=== PATIENT | female | born 1990 | race Caucasian/White ===

== ENCOUNTER → 2018-09-17 18:23 | Outpatient (CLI) | payer OTHER, SELFPAY | PROVIDERS: Visit Provider Physician Assistant | DX: N39.0 Urinary tract infection, site not specified (principal) | CPT/HCPCS: 87086; 87088; 87186 ==

== ENCOUNTER 2021-06-07 21:52 | Emergency (ER) | payer SELFPAY ==
[2021-06-07 21:58] VITALS: BP 176/81; PULSE 80; RESP 16; TEMP 36.7; O2SAT 100; BMI 39.8
--- NOTE | 2021-06-07 22:03 | XR_ITS ---
PROCEDURE INFORMATION: Exam: XR Left Ankle Exam date and time: 06/07/2021 10:03 PM Age: 30 years old Clinical indication: Patient HX: Left lateral ankle pain; Additional info: Ankle vs [place]oulder TECHNIQUE: Imaging protocol: XR Left ankle. Views: 3 or more views. COMPARISON: No relevant prior studies available. FINDINGS: Bones/joints: There is no evidence of acute fracture. There is no evidence of joint malalignment or dislocation. Soft tissues: Soft tissue swelling is present. IMPRESSION: 1. Soft tissue swelling is present. 2. No evidence of acute fracture. 3. No evidence of acute dislocation.
--- NOTE | 2021-06-07 23:21 | HMH.EDLOEX ---
ED Disposition Clinical Impression: Ankle sprain and strain Disposition: Home, Self-Care Condition on Discharge: Good Instructions: DI for Ankle Sprain Additional Instructions: ice and see pcp for follow up Referrals: Jocelyn Lizama PA [Primary Care Provider] - - Critical Care Critical Care Time: No Attestation: On 06/07/21, the high probability of a clinically significant, sudden or life threatening deterioration of the following system(s) required my full and direct attention, intervention and personal management. The time I documented below is in addition to time spent performing reported procedures but includes the following listed in this critical care notation. Medical Decision Making - Medical Records Medical records reviewed: Yes: I reviewed the patient's medical records. - Fazal Inquiry Pt receiving controlled substance: No Vital Signs: 06/07/21 21:58 Temperature 98.1 F Temperature Source Oral Pulse Rate [Right Brachial] 80 Respiratory Rate 16 Blood Pressure [RIGHT AR] 176/81 H Blood Pressure Mean [RIGHT AR] 112 Blood Pressure Source [RIGHT AR] Automatic Cuff Blood Pressure Position [RIGHT AR] Sitting 02 Sat by Pulse Oximetry 100 Oxygen Delivery Method Room Air - Radiology Data #1 Image(s): Ankle Image Reviewed: Yes I reviewed the patient's radiology image, Yes I have reviewed radiologist's interpretation Preliminary Findings: No Fracture Seen Medical Decision Narrative: sts w/o fx seen Lower Extremity Injury HPI - General Chief Complaint: Extremity Injury, Lower Stated Complaint: AO [id number] injured L Ankle Time Seen by Provider: 06/07/21 23:21 Mode of Arrival: Family Vehicle Source of Information: Patient, Medical Record Limitations: No Limitations Description of Symptoms (Recalled from ER Triage Doc. by RN): PT INJURED LEFT ANKLE MONDAY WHILE ON VACATION BY SLAMMING IT AGAINST A ROCK UNINTENTIONALLY. STATES THE SWELLING CONTINUES TO INCR DESPITE ICING IT FOR THE LAST 4 DAYS AND WOULD LIKE IT XRAY'D - History of Present Illness HPI Narrative: acute lt ankle injury as hit against rock - swelling and tender MD complaint: ankle injury Onset (ago): day(s) Injury: Left: ankle Type of Injury: blunt Place: street/outdoors Severity: moderate Context: direct blow Associated symptoms: able to partially bear weight Other symptoms: none - Related Data Allergies Allergy/AdvReac Type Severity Reaction Status Date / Time No Known Allergies Allergy Unverified 09/17/18 15:[address] [facility] History - Hepatitis A Screen Drug use history?: No High risk sexual behaviors?: No History of sexually transmitted infection?: No Currently employed?: No Childcare worker?: No Do you have indoor plumbing?: Yes Do you have electricity?: Yes Attestation statement:: This patient has been screened for Hepatitis A risk factors. I have reviewed the patient's past medical history: Yes Medical History: Denies:: Diabetes Mellitus Type 1, Diabetes Mellitus Type 2 - Social History Smoking Status: Never smoker Alcohol Intake: never Family Hx:: No significant family history ROS Obtained: Yes All systems reviewed & no additional complaints - Constitutional Constitutional: Denies fever(s) - Eyes Eyes: Denies change in vision - ENT Ears, Nose, Mouth, and Throat: Denies sore throat - Cardiovascular Cardiovascular: Denies chest pain - Respiratory Respiratory: Denies cough - Gastrointestinal Gastrointestingal: Denies: abdominal pain - Genitourinary Female Genitourinary: Denies hematuria - Musculoskeletal Musculoskeletal: Reports as per HPI, Reports joint pain, Reports joint swelling, Reports limited range of motion - Integumentary/Breasts Skin/Breast: Denies rash - Neurologic Neurologic: Denies headache(s), Denies seizure-like activity Physical Exam - General General appearance: alert - Head Head exam: normocephalic - Eye Eye exam: Present: Jillian BACA
[2021-06-07 23:41] VITALS: BP 123/70; PULSE 72; RESP 18; TEMP 36.8; O2SAT 98
== END 2021-06-07 23:43 | disposition home or self-care (01) ==
PROVIDERS: Emergency Provider Emergency Medicine; PCP Physician Assistant
DX: S93.402A Sprain of unspecified ligament of left ankle, initial encounter (principal); W22.8XXA Striking against or struck by other objects, initial encounter; Y92.89 Other specified places as the place of occurrence of the external cause
CPT/HCPCS: 73610; 99282

== ENCOUNTER 2021-06-12 11:30 | Emergency (ER) | payer OTHER, SELFPAY ==
[2021-06-12 12:29] VITALS: BP 137/85; PULSE 102; RESP 22; TEMP 36.8; O2SAT 99; BMI 39.8
[2021-06-12 12:43] LABS: UTC Strep Screen (Rapid) Negative (Negative)
--- NOTE | 2021-06-12 12:58 | HMH.EDUTC ---
[facility] Disposition Clinical Impression: Close exposure to COVID-19 virus, Strep throat exposure Disposition: Home, Self-Care Condition on Discharge: Good Instructions: DI for COVID-19 (Suspected or Confirmed ), Preventing the Spread of Coronavirus Discharge Instructions, DI for Strep Throat Additional Instructions: covid swab was sent to lab, call later today for results. self isolate until test results are known to be negative Start antibiotics today be sure to take it as ordered with the full length of time although you should start feeling better in 24-48 hours. Change toothbrush and toothpaste 24-48 hours after starting antibiotics Tylenol or Motrin as needed for fever or pain Encourage fluids, water, Gatorade, Powerade, try cold fluids, popsicles, ice cream will make it feel better You are contagious for 24 hours. Avoid kissing anyone, no eating or drinking after anyone. You are contagious. Follow-up the ER for new or worsening symptoms or no noticeable improvement over the next 24-48 hours. Follow-up with PCP this week. Prescriptions: Azithromycin [Zithromax 250mg tab] 250 mg PO DIRECTED #6 tab Transmission Status: Pending to [facility] #[id number] Referrals: Jocelyn Lizama PA [Primary Care Provider] - Time of Disposition: 13:06 Medical Decision Making - Fazal Inquiry Pt receiving controlled substance: No Vital Signs: 06/12/21 12:29 Temperature 98.2 F Temperature Source Tympanic Pulse Rate [Apical] 102 H Respiratory Rate 22 Blood Pressure [Right Arm] 137/85 Blood Pressure Mean [Right Arm] 102 Blood Pressure Source [Right Arm] Automatic Cuff Blood Pressure Position [Right Arm] Supine 02 Sat by Pulse Oximetry 99 Oxygen Delivery Method Room Air - Lab Data Lab Results 06/12/21 12:26: Strep Scn Rapid Clinic Negative Orders (Tests/Meds): ORDERS Category Date Time Status Covid-19 Nasal PCR ([facility]) Routine Lab 06/12/21 12:20 Received Strep Screen Confirmation Stat Micro 06/12/21 12:26 Received [facility] HPI - General Chief complaint: Urgent Treatment [facility] Stated complaint: covid exposure,fever,cough,body aches Time Seen by Provider: 06/12/21 12:58 Mode of Arrival: Ambulatory Source of Information: Patient Limitations: No Limitations Description of Symptoms (Recalled from Triage Doc. by RN): covid exposure, cough, fever, body aches, nausea HEENT Symptoms (Recalled from RN notes): Yes Resp Symptoms (Recalled from RN notes): Yes Skin Symptoms (Recalled from RN notes): No MS Symptoms (Recalled from RN notes): No Functional Status (Recalled from RN notes): na - History of Present Illness Provider Complaint: 30 yr old female presnts for nasal congestion,sore throat, fever,tiredness and cough. pt states she has been exposed to covid and all three of her kids are poss for strep - Related Data Previous Rx's Medication Instructions Recorded Azithromycin [Zithromax 250mg 250 mg PO DIRECTED #6 tab 06/12/21 tab] Allergies Allergy/AdvReac Type Severity Reaction Status Date / Time No Known Allergies Allergy Unverified 09/17/18 15:29 - Worker's Comp Is this a Worker's Comp case?: No H History - Hepatitis A Screen Drug use history?: No High risk sexual behaviors?: No History of sexually transmitted infection?: No Currently employed?: No Childcare worker?: No Do you have indoor plumbing?: Yes Do you have electricity?: Yes Attestation statement:: This patient has been screened for Hepatitis A risk factors. I have reviewed the patient's past medical history: Yes Medical History: Denies:: Diabetes Mellitus Type 1, Diabetes Mellitus Type 2 - Social History Smoking Status: Never smoker Alcohol Intake: never Family Hx:: No significant family history ROS Obtained: Yes Systems reviewed as appropriate & no additional complaints - Constitutional Constitutional: Reports system reviewed and no additional complaints, except as docu, Reports feve
[2021-06-12 13:13] VITALS: BP 137/85; PULSE 102; RESP 22; TEMP 36.8
--- NOTE | 2021-06-12 16:33 | PC.NURSE ---
Patient contacted with positive covid results. Advised patient to self quarantine for 2 weeks.
== END 2021-06-12 13:14 | disposition home or self-care (01) ==
PROVIDERS: Emergency Provider Nurse Practitioner Family; PCP Physician Assistant
DX: U07.1 COVID-19 (principal)
CPT/HCPCS: 87880; 99202; G0463; U0003

== ENCOUNTER 2021-06-16 04:09 | Emergency (ER) | payer OTHER, SELFPAY ==
[2021-06-16 04:12] VITALS: BP 110/60; PULSE 112; RESP 18; TEMP 36.8; O2SAT 97; BMI 36.6
--- NOTE | 2021-06-16 04:42 | HMH.EDGENADL ---
ED Disposition Clinical Impression: COVID-19 Disposition: Home, Self-Care Condition on Discharge: Good Additional Instructions: Return to the emergency department for any new or worsening symptoms. Follow-up with your primary care doctor for recheck of your LFTs. Take Phenergan as needed for nausea and vomiting and discontinue Zofran. Continue Tylenol and ibuprofen as needed. You can increase your dose of ibuprofen to 600 mg every 6 hours but do not increase your dose of tylenol. Agressively hydrate. Prescriptions: Promethazine HCl [Phenergan 12.5mg tablet] 12.5 mg PO Q6H PRN #6 tab PRN Reason: Nausea And Vomiting Transmission Status: Pending to [facility] #[id number] Referrals: Jocelyn Lizama PA [Primary Care Provider] - - Critical Care Critical Care Time: No Attestation: On 06/16/21, the high probability of a clinically significant, sudden or life threatening deterioration of the following system(s) required my full and direct attention, intervention and personal management. The time I documented below is in addition to time spent performing reported procedures but includes the following listed in this critical care notation. Medical Decision Making - Fazal Inquiry Pt receiving controlled substance: No Vital Signs: 06/16/21 04:12 Temperature 98.2 F Temperature Source Oral Pulse Rate [Right] 112 H Respiratory Rate 18 Blood Pressure [Right Arm] 110/60 Blood Pressure Mean [Right Arm] 76 02 Sat by Pulse Oximetry 97 - Lab Data Lab Results 06/16/21 04:30: WBC 3.3 L, RBC 5.48 H, Hgb 13.8, Hct 40.9, MCV 74.7 L, MCH 25.2 L, MCHC 33.8, RDW 14.3, Plt Count 192, MPV 8.3, Neut % (Auto) 83.9 H, Lymph % (Auto) 13.4, Loup % (Auto) 2.3, Eos % (Auto) 0.0 L, Baso % (Auto) 0.4, Neut # (Auto) 2.7, Lymph # (Auto) 0.4 L, Loup # (Auto) 0.1, Eos # (Auto) 0.0, Baso # (Auto) 0.0 06/16/21 04:30: Sodium 139, Potassium 3.5, Chloride 100, Carbon Dioxide 28, Anion Gap 14.5, BUN 15, Creatinine 1.00, Estimated Creat Clear 119, Estimated GFR 66, Est GFR ( Amer) 79, Glucose 150 H, Calcium 8.8, Total Bilirubin 0.7, AST 66 H, ALT 81 H, Alkaline Phosphatase 102, Total Protein 8.0, Albumin 4.4, Globulin 3.6 H, Albumin/Globulin Ratio 1.2 Result diagrams: 06/16/21 04:30 06/16/21 04:30 Orders (Tests/Meds): ED MEDICATIONS Generic Name Dose Route Start Last Admin Trade Name Freq PRN Reason Stop Dose Admin Lactated Ringer's 1,000 mls @ 999 mls/hr 06/16/21 04:30 06/16/21 04:41 Lactated Ringer's 1000 Ml Bag IV 06/16/21 05:30 999 mls/hr .Q1H1M GISSEL Administration Discontinued Medications Generic Name Dose Route Start Last Admin Trade Name Freq PRN Reason Stop Dose Admin Dexamethasone Sodium Phosphate 10 mg 06/16/21 04:30 06/16/21 04:40 Dexamethasone 4mg/Ml 5ml Mdv IV 06/16/21 04:31 10 mg ONCE ONE Administration Ketorolac Tromethamine 30 mg 06/16/21 04:30 06/16/21 04:39 Ketorolac 30mg/Ml Vial IV 06/16/21 04:31 30 mg ONCE ONE Administration Prochlorperazine Edisylate 10 mg 06/16/21 04:32 06/16/21 04:39 Prochlorperazine 10mg/2ml Vial IV 06/16/21 04:33 10 mg ONCE ONE Administration Promethazine HCl 25 mg 06/16/21 04:30 06/16/21 04:39 Promethazine Hcl 25mg/Ml 1ml Vial IV 06/16/21 04:31 Not Given ONCE ONE Sodium Chloride 25 ml 06/16/21 04:30 06/16/21 04:39 Sodium Chloride 0.9% 25ml Bag IV 06/16/21 04:31 Not Given ONCE ONE Medical Decision Narrative: The patient is a 30-year-old female with no significant past medical history presents to the emergency department with 5 days of nausea, vomiting, decreased p.o. intake, headache, myalgias. She is known Covid positive. Differential diagnosis includes but 19, pneumonia, dehydration. Given this plan to obtain CBC, CMP. Lungs clear to auscultation and she has appropriate oxygen saturation on room air with normal work of breathing. Given this chest x-ray not deemed necessary. She was given Comp
[2021-06-16 04:51] LABS: Basophils % 0.4 % (0.1-2.0); Hematocrit 40.9 % (37.0-47.0); Hemoglobin 13.8 g/dL (12.2-16.2); Lymphocytes # 0.4 K/mm3 (0.7-4.5); Lymphocytes % 13.4 % (10-50); Mean Corpuscular HGB Conc 33.8 g/dL (31.8-35.4); Mean Corpuscular Hemoglobin 25.2 pg (27.0-31.2); Mean Corpuscular Volume 74.7 fl (81-99); Mean Platelet Volume 8.3 fl (7.4-10.4); Monocytes # 0.1 K/mm3 (0.1-1.0); Monocytes % 2.3 % (1.7-9.3); Neutrophils # 2.7 K/mm3 (1.8-7.8); Neutrophils % 83.9 % (37.0-80.0); Platelet Count 192 K/mm3 (142-424); Red Blood Count 5.48 M/mm3 (4.20-5.40); Red Cell Distribution Width 14.3 % (11.5-17.5); White Blood Count 3.3 K/mm3 (4.8-10.8)
[2021-06-16 04:52] LABS: Chloride 100 mmol/L (98-107); Potassium 3.5 mmoL/L (3.5-5.1); Sodium 139 mmol/L (136-145)
[2021-06-16 04:55] LABS: Alanine Aminotransferase 81 U/L (12-78); Albumin Level 4.4 g/dl (3.5-5.0); Albumin/Globulin Ratio 1.2 (1.1-1.8); Alkaline Phosphatase 102 U/L (38-126); Anion Gap 14.5 mEq/L (5-15); Aspartate Amino Transferase 66 U/L (14-36); Bilirubin,Total 0.7 mg/dl (0.2-1.3); Blood Urea Nitrogen 15 mg/dl (7-17); Carbon Dioxide 28 mmol/L (22.0-30.0); Creatinine Clearance Estimated 119 mL/min (50-200); Estimated Glomerular Filt Rate 66 ml/min (>60); GFR (African American) 79 ML/MIN (>60); Globulin 3.6 g/dL (1.3-3.2)
[2021-06-16 04:56] LABS: Calcium 8.8 mg/dl (8.4-10.2); Glucose 150 mg/dl (74-100)
[2021-06-16 05:36] VITALS: BP 111/76; PULSE 104; RESP 19; O2SAT 96
[2021-06-16 05:40] VITALS: BP 110/62; PULSE 101; RESP 18; TEMP 37.1; O2SAT 96
== END 2021-06-16 05:48 | disposition home or self-care (01) ==
PROVIDERS: Emergency Provider Emergency Medicine; PCP Physician Assistant
DX: U07.1 COVID-19 (principal)
CPT/HCPCS: 80053; 85025; 96365; 99283

== ENCOUNTER 2021-06-18 07:59 | Inpatient (IN) | payer OTHER, SELFPAY ==
[2021-06-18] VITALS (17 sets, daily range): BP systolic 97–120; BP diastolic 53–66; PULSE 85–131; RESP 18–47; TEMP 36.6–39.4; O2SAT 88–97; BMI 38.9; BMI 40.2
--- NOTE | 2021-06-18 08:09 | XR_ITS ---
PROCEDURE: XR CHEST PORTABLE CLINICAL HISTORY: covid Shortness of air COMPARISON: No exams were available for comparison FINDINGS: The cardiomediastinal silhouette and pulmonary vascularity are within normal limits. Multifocal areas of consolidation are present in both mid and lower lung zones consistent with bilateral pneumonia. Lung apices are clear. No acute bony findings. No obvious effusion. IMPRESSION: Bilateral multifocal pneumonia Dictated by: Cosmo King MD 06/18/2021 09:51 Cosmo King MD in [facility] 06/18/2021 09:51
--- NOTE | 2021-06-18 08:09 | HMH.EDGENADL ---
ED Disposition Clinical Impression: COVID, Acute respiratory failure with hypoxia Pneumonia Qualifiers: Pneumonia type: due to unspecified organism Laterality: bilateral Lung location: unspecified part of lung Qualified Code(s): J18.9 - Pneumonia, unspecified organism Disposition: Admitted As Inpatient Condition on Discharge: Fair Referrals: Jocelyn Lizama PA [Primary Care Provider] - Time of Disposition: 10:26 - Critical Care Critical Care Time: No Attestation: On , the high probability of a clinically significant, sudden or life threatening deterioration of the following system(s) required my full and direct attention, intervention and personal management. The time I documented below is in addition to time spent performing reported procedures but includes the following listed in this critical care notation. Medical Decision Making - Medical Records Medical records reviewed: Yes: I reviewed the patient's medical records. - Fazal Inquiry Pt receiving controlled substance: No Vital Signs: 06/18/21 08:01 06/18/21 08:29 06/18/21 08:30 Temperature 103 F H Temperature Source Oral Pulse Rate 131 H 128 H Pulse Rate [Right Radial] 124 H Respiratory Rate 20 47 H 41 H Blood Pressure Blood Pressure [Right Arm] 108/59 L Blood Pressure Mean Blood Pressure Mean [Right Arm] 75 Blood Pressure Source [Right Arm] Automatic Cuff Blood Pressure Position [Right Arm] Sitting 02 Sat by Pulse Oximetry 88 L 93 L 93 L Oxygen Delivery Method Room Air Nasal Cannula Oxygen Flow Rate (LPM) 2 06/18/21 08:33 06/18/21 08:45 06/18/21 09:00 Temperature Temperature Source Pulse Rate 127 H 128 H Pulse Rate [Right Radial] Respiratory Rate 37 H 25 H Blood Pressure 120/66 Blood Pressure [Right Arm] Blood Pressure Mean 81 Blood Pressure Mean [Right Arm] Blood Pressure Source [Right Arm] Blood Pressure Position [Right Arm] 02 Sat by Pulse Oximetry 93 L 94 L 95 Oxygen Delivery Method Nasal Cannula Oxygen Flow Rate (LPM) 20 06/18/21 09:18 06/18/21 09:35 06/18/21 09:45 Temperature Temperature Source Pulse Rate 124 H 112 H Pulse Rate [Right Radial] Respiratory Rate Blood Pressure Blood Pressure [Right Arm] Blood Pressure Mean Blood Pressure Mean [Right Arm] Blood Pressure Source [Right Arm] Blood Pressure Position [Right Arm] 02 Sat by Pulse Oximetry 90 L 96 96 Oxygen Delivery Method Oxygen Flow Rate (LPM) 06/18/21 09:49 06/18/21 09:59 06/18/21 10:00 Temperature 101.7 F H Temperature Source Oral Pulse Rate 114 H 114 H Pulse Rate [Right Radial] Respiratory Rate 27 H 26 H Blood Pressure 105/63 L 110/61 Blood Pressure [Right Arm] Blood Pressure Mean 74 71 Blood Pressure Mean [Right Arm] Blood Pressure Source [Right Arm] Blood Pressure Position [Right Arm] 02 Sat by Pulse Oximetry 96 96 Oxygen Delivery Method Nasal Cannula Oxygen Flow Rate (LPM) 2 06/18/21 10:05 Temperature Temperature Source Pulse Rate Pulse Rate [Right Radial] Respiratory Rate Blood Pressure Blood Pressure [Right Arm] Blood Pressure Mean Blood Pressure Mean [Right Arm] Blood Pressure Source [Right Arm] Blood Pressure Position [Right Arm] 02 Sat by Pulse Oximetry 95 Oxygen Delivery Method Nasal Cannula Oxygen Flow Rate (LPM) 2 - Lab Data Lab results reviewed: Yes: I reviewed the patient's lab results. Lab Results 06/18/21 08:20: Sodium 138, Potassium 3.5, Chloride 103, Carbon Dioxide 25, Anion Gap 13.5, BUN 17, Creatinine 0.80, Estimated Creat Clear 163, Estimated GFR 85, Est GFR ( Amer) 103 D, Glucose 109 H, Calcium 8.1 L, Total Bilirubin 0.5, AST 36 D, ALT 36 D, Alkaline Phosphatase 70, Lactate Dehydrogenase 329, Total Protein 6.9, Albumin 3.7, Globulin 3.2, Albumin/Globulin Ratio 1.2 06/18/21 08:20: Serum HCG, Qual Negative 06/18/21 08:20: D-Dimer 0.65 H 06/18/21 08:50: WBC 2.7 L, RBC 4.6
--- NOTE | 2021-06-18 08:10 | ECG_ITS ---
APPROVED REPORT Exam: Resting ECG HR:124 bpm ECG Measurements Heart Rate 124 AXES MD 120 P 17 QRSd 84 QRS 28 QT 408 T 21 QTc 586 Conclusion Sinus tachycardia Nonspecific T wave abnormality Abnormal ECG Electronically signed by : Dano Nguyen, 06/20/2021 21:08:03
--- NOTE | 2021-06-18 08:18 | PC.NURSE ---
rad at BS for portable xray
[2021-06-18 08:59] LABS: Alanine Aminotransferase 36 U/L (12-78); Albumin Level 3.7 g/dl (3.5-5.0); Albumin/Globulin Ratio 1.2 (1.1-1.8); Alkaline Phosphatase 70 U/L (38-126); Anion Gap 13.5 mEq/L (5-15); Aspartate Amino Transferase 36 U/L (14-36); Bilirubin,Total 0.5 mg/dl (0.2-1.3); Blood Urea Nitrogen 17 mg/dl (7-17); Calcium 8.1 mg/dl (8.4-10.2); Carbon Dioxide 25 mmol/L (22.0-30.0); Chloride 103 mmol/L (98-107); Creatinine Clearance Estimated 163 mL/min (50-200); Estimated Glomerular Filt Rate 85 ml/min (>60); GFR (African American) 103 ML/MIN (>60); Globulin 3.2 g/dL (1.3-3.2); Glucose 109 mg/dl (74-100); Lactate Dehydrogenase 329 U/L (313-618); Potassium 3.5 mmoL/L (3.5-5.1); Sodium 138 mmol/L (136-145); Total Protein,Serum 6.9 g/dl (6.3-8.2)
[2021-06-18 09:01] LABS: Basophils % 0.4 % (0.1-2.0); Eosinophils % 0.5 % (0.1-12.0); Hematocrit 34.3 % (37.0-47.0); Hemoglobin 11.7 g/dL (12.2-16.2); Lymphocytes # 0.4 K/mm3 (0.7-4.5); Lymphocytes % 14.8 % (10-50); Mean Corpuscular Hemoglobin 25.2 pg (27.0-31.2); Mean Platelet Volume 8.2 fl (7.4-10.4); Monocytes % 1.2 % (1.7-9.3); Neutrophils # 2.2 K/mm3 (1.8-7.8); Platelet Count 191 K/mm3 (142-424); Red Blood Count 4.64 M/mm3 (4.20-5.40); Red Cell Distribution Width 14.6 % (11.5-17.5); White Blood Count 2.7 K/mm3 (4.8-10.8)
[2021-06-18 09:05] LABS: D-Dimer 0.65 ug/mL (0.0-0.5)
--- NOTE | 2021-06-18 09:11 | CT_ITS ---
PROCEDURE: CT ANGIO CHEST PE PROTOCOL CLINCIAL INDICATION: COVID, SOB The shortness of air and fever COMPARISON: CR XR CHEST PORTABLE from 06/18/2021 TECHNIQUE: IV Contrast: 70ML Isovue 370 Axial images obtained with sagittal and coronal reformats. All CT scans at the facility use one or more dose reduction, viz: automated exposure control, ma/kV adjustment per patient size (including targeted exams where dose is matched to indication, i.e. head), or iterative reconstruction technique. FINDINGS: HEART AND MEDIASTINAL STRUCTURES: No evidence of aortic aneurysm or dissection. No evidence pulmonary embolus. There are mildly prominent mediastinal lymph nodes in the right paratracheal region anteriorly measuring up to 1.8 cm. LUNGS AND PLEURAL SPACES: Multi segmental areas of ground-glass attenuation and areas of consolidation are present in both upper and lower lobes consistent with Covid19 pneumonia. There is sparing of the apices on both sides. There is trace right effusion. BONY STRUCTURES: No acute bony abnormalities apparent. UPPER ABDOMEN: Fatty liver ADDITIONAL FINDINGS: No other significant abnormalities. IMPRESSION: 1. Multifocal bilateral areas of ground-glass attenuation and consolidation consistent with Covid19 pneumonia with trace right effusion 2. No evidence of pulmonary embolus. Dictated by: Cosmo King MD 06/18/2021 09:43 Cosmo King MD in [facility] 06/18/2021 09:43
[2021-06-18 09:18] LABS: HCG Qualitative, Serum Negative (Negative)
--- NOTE | 2021-06-18 09:22 | PC.NURSE ---
Pt to CT scanner via wheelchair at this time.
--- NOTE | 2021-06-18 09:29 | PC.NURSE ---
pt with rad
--- NOTE | 2021-06-18 11:18 | PC.NURSE ---
Report given to TEENA Arceo.
--- NOTE | 2021-06-18 18:04 | P.CONPHA_ITS ---
[facility] Pharmacy VTE Monitoring - Patient Demographics Admission date: 06/18/21 Report Date: 06/18/21 Time: 18:04 Allergies/Adverse Reactions: Patient Allergies No Known Allergies Allergy (Verified 06/18/21 09:28) Height: 1.57 m Weight: 99.79 kg Patient Problems: Current Active Problems COVID (Acute) Pneumonia (Acute) Acute respiratory failure with hypoxia (Acute) - VTE Risk Labs: VTE Related Lab Results Hgb 11.7 g/dL (12.2-16.2) L 06/18/21 08:50 Hct 34.3 % (37.0-47.0) L 06/18/21 08:50 Plt Count 191 K/mm3 (142-424) 06/18/21 08:50 BUN 17 mg/dl (7-17) 06/18/21 08:20 Creatinine 0.80 mg/dl (0.52-1.04) 06/18/21 08:20 Estimated Creat Clear 163 mL/min (50-200) 06/18/21 08:20 Was VTE Risk Assessment Performed: Yes VTE Score: 0 VTE Risk Level: Very Low Risk Clinical Trial Participant: No - Prophylaxis VTE Prophylaxis Ordered?: Yes Types of VTE Prophylaxis: TEDS Knee High Pharmacologic Type: Enoxaparin - VTE Diagnosis Confirmed Treatment or plan recommended: Continue Current Treatment
--- NOTE | 2021-06-18 18:07 | PC.NURSE ---
pt has remained in bed since admission. she has had 2 loose bm this shift. afebrile. sats in the low 90's on 2lpm. denies any distress. lungs are diminished, bowel sounds active. nad noted. will monitor.
[2021-06-19] VITALS: BP 105/61; PULSE 96; RESP 19; TEMP 37; O2SAT 91
[2021-06-19 04:00] VITALS: BP 111/71; PULSE 86; RESP 19; O2SAT 95
[2021-06-19 06:14] VITALS: BMI 40.5
[2021-06-19 06:35] LABS: Basophils % 0.2 % (0.1-2.0); Eosinophils % 0.4 % (0.1-12.0); Hematocrit 33.5 % (37.0-47.0); Hemoglobin 11.2 g/dL (12.2-16.2); Lymphocytes # 0.9 K/mm3 (0.7-4.5); Lymphocytes % 38.8 % (10-50); Mean Corpuscular HGB Conc 33.4 g/dL (31.8-35.4); Mean Corpuscular Hemoglobin 25.1 pg (27.0-31.2); Mean Corpuscular Volume 75.1 fl (81-99); Mean Platelet Volume 8.6 fl (7.4-10.4); Monocytes # 0.1 K/mm3 (0.1-1.0); Monocytes % 3.7 % (1.7-9.3); Neutrophils # 1.3 K/mm3 (1.8-7.8); Neutrophils % 56.9 % (37.0-80.0); Platelet Count 121 K/mm3 (142-424); Red Blood Count 4.46 M/mm3 (4.20-5.40); Red Cell Distribution Width 14.8 % (11.5-17.5); White Blood Count 2.3 K/mm3 (4.8-10.8)
--- NOTE | 2021-06-19 06:49 | PC.NURSE ---
Patient is A&Ox4. She had a temperature of 102.7 at the beginning of the shift, patient medicated per JAN. She had complaints of nausea and was treated per JAN. Lung sounds clear, but diminished throughout. Patient slept prone most of the night and maintain O2 saturation of 94-96% on 2LNC. Suggested patient sleep prone due to O2 saturation dropping to 87% while sleeping. Will continue to monitor. Vital signs stable, call light within reach.
[2021-06-19 06:54] LABS: Blood Urea Nitrogen 12 mg/dl (7-17); Calcium 7.6 mg/dl (8.4-10.2); Carbon Dioxide 24 mmol/L (22.0-30.0); Chloride 107 mmol/L (98-107); Creatinine Clearance Estimated 104 mL/min (50-200); Estimated Glomerular Filt Rate 118 ml/min (>60); GFR (African American) 143 ML/MIN (>60); Glucose 79 mg/dl (74-100); Sodium 139 mmol/L (136-145)
[2021-06-19 08:00] VITALS: BP 143/67; PULSE 95; RESP 17; TEMP 36.3; O2SAT 93
[2021-06-19 12:00] VITALS: BP 116/69; PULSE 106; RESP 19; TEMP 37; O2SAT 93
--- NOTE | 2021-06-19 14:08 | HMH.HP ---
*Admission Date: 06/18/21 *Chief complaint: covid pneumonia *History of present illness: 30yo F presents the emergency department second shortness of breath. Patient test positive for Covid on Monday. Complains of fever. Decreased appetite. Reports general malaise. Patient has no known health conditions. She does not smoke. Takes no medications. 30yo F evaluated for shortness of breath with known Covid. Patient is 88% on room air on arrival. Placed on 2 L nasal cannula with appropriate improvement in O2 saturation. Routine Covid work-up initiated. D-dimer elevated at 0.65. Sent for CT PE study, negative for PE. Multifocal pneumonia on CT scan therefore started on Rocephin and azithromycin. Fever treated with Tylenol and Motrin on arrival. Case discussed with Dr. Aguirre who agrees to admit the patient at this time for further treatment. CTA chest as follows : PROCEDURE: CT ANGIO CHEST PE PROTOCOL CLINCIAL INDICATION: COVID, SOB The shortness of air and fever COMPARISON: CR XR CHEST PORTABLE from 06/18/2021 TECHNIQUE: IV Contrast: 70ML Isovue 370 Axial images obtained with sagittal and coronal reformats. All CT scans at the facility use one or more dose reduction, viz: automated exposure control, ma/kV adjustment per patient size (including targeted exams where dose is matched to indication, i.e. head), or iterative reconstruction technique. FINDINGS: HEART AND MEDIASTINAL STRUCTURES: No evidence of aortic aneurysm or dissection. No evidence pulmonary embolus. There are mildly prominent mediastinal lymph nodes in the right paratracheal region anteriorly measuring up to 1.8 cm. LUNGS AND PLEURAL SPACES: Multi segmental areas of ground-glass attenuation and areas of consolidation are present in both upper and lower lobes consistent with Covid19 pneumonia. There is sparing of the apices on both sides. There is trace right effusion. BONY STRUCTURES: No acute bony abnormalities apparent. UPPER ABDOMEN: Fatty liver ADDITIONAL FINDINGS: No other significant abnormalities. IMPRESSION: 1. Multifocal bilateral areas of ground-glass attenuation and consolidation consistent with Covid19 pneumonia with trace right effusion 2. No evidence of pulmonary embolus. [facility] History Medical History: Denies:: Asthma, Congestive Heart Failure, Chronic Obstructive Pulmonary Disease (COPD), Diabetes Mellitus Type 1, Diabetes Mellitus Type 2, Hypertension *Have you ever received a pneumonia vaccine?: No *Have you received a flu vaccine this season?: No - *Social History Last grade of school completed: High school graduate Smoking Status: Never smoker Alcohol Intake: never *Occupational Status:: employed Household Members: spouse, children *Travel in the last 8 weeks: None Family Hx:: No significant family history Review of Systems - Constitutional Reports lack of energy, Reports malaise - Eyes Denies change in vision - ENT Denies difficulty swallowing - *Cardiovascular Reports chest pain, Reports shortness of breath, Reports shortness of breath with activity - *Respiratory Reports chest congestion, Reports cough - *Gastrointestinal Reports abdominal pain, Reports cramping, Reports vomiting - *Genitourinary Denies painful urination - *Musculoskeletal Reports muscle weakness, Reports body aches - Integumentary/Breasts Denies yellowing of the skin - *Neurologic Denies seizure-like activity, Denies localized weakness - Psychiatric Denies behavioral changes - Endocrine Denies rapid, pounding, or irregular heartbeat - Hematologic/Lymphatic Denies easy bleeding, Denies easy bruising - Allergic/Immunologic Denies hives Meds Allergies Allergy/AdvReac Type Severity Reaction Status Date / Time No Known Allergies Allergy Verified 06/18/21 09:28 Exam Vital signs and Labs for Last 24 Hours: Temp Pulse Resp BP Pulse Ox 98.6 F 106 H 19 116/69 93 L
[2021-06-19 16:00] VITALS: BP 118/56; PULSE 96; RESP 17; TEMP 37.4; O2SAT 90
[2021-06-19 20:00] VITALS: BP 90/74; PULSE 101; RESP 22; TEMP 37.4; O2SAT 91
[2021-06-20] VITALS: BP 142/77; PULSE 70; RESP 20; TEMP 37.5; O2SAT 91
--- NOTE | 2021-06-20 03:22 | PC.NURSE ---
Patient is alert & oriented x4. She has rested well this shift. No complaints where made voice this shift. O2 saturation has been maintained on 2L NC. Patient has slept prone and has tolerated that well. Lung sounds are clear. Vital signs clear, will continue to monitor, call light within reach.
--- NOTE | 2021-06-20 03:49 | PC.NURSE ---
Patient had a coughing spell and wanted to sit up for a bit. O2 saturation fell and I suggested she lay prone again. At that time patient states I feel like I can't breath laying like this right now . Patient is currently sitting in high [place] with a O2 of 89% with respirations at 21. Will continue to monitor.
[2021-06-20 04:00] VITALS: BP 120/79; PULSE 86; RESP 20; TEMP 37.2; O2SAT 92
[2021-06-20 05:00] VITALS: BMI 40.7
--- NOTE | 2021-06-20 06:00 | XR_ITS ---
PROCEDURE INFORMATION: Exam: XR Chest Exam date and time: 06/20/2021 6:00 AM Age: 30 years old Clinical indication: Cough; Patient HX: Pneumonia. Covid positive; Additional info: [place] TECHNIQUE: Imaging protocol: XR of the chest. Views: 1 view. COMPARISON: CR XR CHEST PORTABLE 06/18/2021 8:20 AM FINDINGS: Lungs: Patchy bilateral opacities may represent multifocal pneumonia including COVID-19. Pleural spaces: Unremarkable. No pleural effusion. No pneumothorax. Heart/Mediastinum: Unremarkable. No cardiomegaly. Bones/joints: Unremarkable. IMPRESSION: Patchy bilateral opacities may represent multifocal pneumonia including COVID-19.
[2021-06-20 06:11] LABS: Basophils % 0.1 % (0.1-2.0); Eosinophils % 0.1 % (0.1-12.0); Hematocrit 29.5 % (37.0-47.0); Lymphocytes # 0.8 K/mm3 (0.7-4.5); Lymphocytes % 24.4 % (10-50); Mean Corpuscular HGB Conc 33.1 g/dL (31.8-35.4); Mean Corpuscular Hemoglobin 24.9 pg (27.0-31.2); Mean Corpuscular Volume 75.3 fl (81-99); Mean Platelet Volume 7.7 fl (7.4-10.4); Monocytes # 0.1 K/mm3 (0.1-1.0); Neutrophils # 2.2 K/mm3 (1.8-7.8); Neutrophils % 71.4 % (37.0-80.0); Platelet Count 218 K/mm3 (142-424); Red Blood Count 3.91 M/mm3 (4.20-5.40); Red Cell Distribution Width 14.7 % (11.5-17.5)
[2021-06-20 06:17] LABS: Hemoglobin 9.7 g/dL (12.2-16.2)
[2021-06-20 07:08] LABS: Chloride 101 mmol/L (98-107); Sodium 139 mmol/L (136-145)
[2021-06-20 07:10] LABS: Blood Urea Nitrogen 9 mg/dl (7-17); Creatinine Clearance Estimated 89 mL/min (50-200); Estimated Glomerular Filt Rate 99 ml/min (>60); GFR (African American) 120 ML/MIN (>60)
[2021-06-20 07:11] LABS: Alanine Aminotransferase 20 U/L (12-78); Albumin Level 2.8 g/dl (3.5-5.0); Alkaline Phosphatase 51 U/L (38-126); Aspartate Amino Transferase 34 U/L (14-36); Bilirubin,Total 0.2 mg/dl (0.2-1.3); Calcium 7.6 mg/dl (8.4-10.2); Carbon Dioxide 28 mmol/L (22.0-30.0); Globulin 2.9 g/dL (1.3-3.2); Glucose 76 mg/dl (74-100); Total Protein,Serum 5.7 g/dl (6.3-8.2)
[2021-06-20 08:00] VITALS: BP 121/71; PULSE 95; RESP 20; TEMP 37.1; O2SAT 91
[2021-06-20 11:12] VITALS: BP 134/72; PULSE 76; RESP 19; TEMP 36.7; O2SAT 93
[2021-06-20 15:31] VITALS: BP 132/80; PULSE 60; RESP 18; TEMP 36.8; O2SAT 95
--- NOTE | 2021-06-20 16:32 | P.PN_ITS ---
Internal Medicine - PN: Subj *Date: 06/20/21 *Time: 16:32 Interval history: ICU staff notes no significant decline or worrisome changes. She is saturating at 2 L/min. We are initiating remdesivir, and initiating runs of IV potassium. I spoke with the clinical pharmacist earlier today. Cough is somewhat abated, nausea is manageable. Does have a mild bifrontal headache. Exam Vital signs and Labs for Last 24 Hours: Temp Pulse Resp BP Pulse Ox 98.3 F 60 18 132/80 95 06/20/21 15:31 06/20/21 15:31 06/20/21 15:31 06/20/21 15:31 06/20/21 15:31 Laboratory Results - last 24 hr 06/20/21 05:33: WBC 3.0 L D, RBC 3.91 L, Hgb 9.7 L D, Hct 29.5 L, MCV 75.3 L, MCH 24.9 L, MCHC 33.1, RDW 14.7, Plt Count 218 D, MPV 7.7, Neut % (Auto) 71.4, Lymph % (Auto) 24.4, [place] % (Auto) 4.0, Eos % (Auto) 0.1, Baso % (Auto) 0.1, Neut # (Auto) 2.2, Lymph # (Auto) 0.8, [place] # (Auto) 0.1, Eos # (Auto) 0.0, Baso # (Auto) 0.0 06/20/21 05:33: Sodium 139, Potassium 3.0 L, Chloride 101, Carbon Dioxide 28, Anion Gap 13.0, BUN 9, Creatinine 0.70, Estimated Creat Clear 89, Estimated GFR 99, Est GFR ( Amer) 120, Glucose 76, Calcium 7.6 L, Total Bilirubin 0.2, AST 34, ALT 20 D, Alkaline Phosphatase 51, Total Protein 5.7 L, Albumin 2.8 L, Globulin 2.9, Albumin/Globulin Ratio 1.0 L I & O for Last 24 hours: Intake & Output 06/17/21 06/18/21 06/19/21 06/20/21 23:59 23:59 23:59 23:59 Intake Total 520 / 520 1731 / 1731 1090 / 1090 Output Total 0 / 0 Balance 520 / 520 1731 / 1731 1090 / 1090 Weight 220 lb 220 lb 6.4 oz 221 lb 5 oz - Constitutional no acute distress - *Routine HEENT Exam Head: Present: normocephalic Eye: Present: EOMI, PERRL ENT: Present: mucous membranes moist - *Routine Neck Exam Present: supple. Absent: lymphadenopathy - *Routine Respiratory Exam Present: crackles. Absent: patient mechanically ventilated, respiratory distress - *Routine Cardiovascular Exam Present: RRR - *Routine Abdominal Exam Present: soft, normoactive bowel sounds. Absent: tenderness - *Routine Extremities Exam Absent: cyanosis, clubbing, edema - *Routine Skin Exam Present: warm. Absent: rash - *Routine Neurological Exam Present: alert, oriented X3 Assessment and Plan (1) Acute respiratory failure with hypoxia Status: Acute Category: Medical Code(s): J96.01 - Acute respiratory failure with hypoxia (2) COVID Status: Acute Category: Medical Code(s): U07.1 - COVID-19 (3) Pneumonia Status: Acute Qualifiers: Pneumonia type: due to unspecified organism Laterality: bilateral Lung location: unspecified part of lung Qualified Code(s): J18.9 - Pneumonia, unspecified organism Category: Medical Code(s): J18.9 - Pneumonia, unspecified organism (4) COVID-19 Status: Acute Category: Medical Code(s): U07.1 - COVID-19 - Assessment and plan all Dx Assessment and Plan for all problems:: Will continue current regimen and gauge her process. See chart for further orders.
[2021-06-20 20:00] VITALS: BP 125/77; PULSE 68; RESP 19; TEMP 36.4; O2SAT 93
[2021-06-21] VITALS: BP 116/75; PULSE 53; RESP 18; TEMP 36.2; O2SAT 93
[2021-06-21 04:00] VITALS: BP 113/68; PULSE 52; RESP 19; TEMP 36.7; O2SAT 92
--- NOTE | 2021-06-21 04:49 | PC.NURSE ---
Patient is alert and oriented x4. Patient has had no complaints this shift. Patient states I feel so much better . Lung sounds are clear. Patient remains on 2L NC with an O2 saturation in the low 90s. Vital signs are stable, will continue to monitor, call light within reach.
[2021-06-21 05:00] VITALS: BMI 41.1
[2021-06-21 07:25] LABS: Chloride 109 mmol/L (98-107)
[2021-06-21 07:26] LABS: Potassium 3.8 mmoL/L (3.5-5.1); Sodium 141 mmol/L (136-145)
[2021-06-21 07:28] LABS: Alanine Aminotransferase 30 U/L (12-78); Alkaline Phosphatase 55 U/L (38-126); Aspartate Amino Transferase 49 U/L (14-36); Bilirubin,Total 0.4 mg/dl (0.2-1.3); Blood Urea Nitrogen 12 mg/dl (7-17); Creatinine Clearance Estimated 125 mL/min (50-200); Estimated Glomerular Filt Rate 146 ml/min (>60); GFR (African American) 177 ML/MIN (>60)
[2021-06-21 07:29] LABS: Anion Gap 11.8 mEq/L (5-15); Calcium 8.2 mg/dl (8.4-10.2); Carbon Dioxide 24 mmol/L (22.0-30.0); Glucose 103 mg/dl (74-100)
[2021-06-21 08:00] VITALS: BP 104/72; PULSE 52; RESP 20; TEMP 36.6; O2SAT 93
[2021-06-21 11:27] VITALS: O2SAT 87
[2021-06-21 11:43] VITALS: BP 117/61; PULSE 60; RESP 20; TEMP 36.4; O2SAT 92
--- NOTE | 2021-06-21 12:43 | SW/DCPLANNER ---
RECEIVED REFERRAL FOR THIS PATIENT FOR HOME 02.... A PORTABLE TANK WILL BE BROUGHT UP TO THE WAITING AREA SINCE PATIENT HAS COVID.. MAY DISCHARGE LATER IN THE AFTERNOON...
[2021-06-21 13:09] LABS: C-Reactive Protein 43.6 mg/L (0-4); D-Dimer 0.88 ug/mL (0.0-0.5)
[2021-06-21 13:39] LABS: Ferritin 63.9 ng/ml (6.24-137)
[2021-06-21 14:25] VITALS: BMI 40.9
--- NOTE | 2021-06-21 15:36 | HMH.DCSUM ---
General - General Admission date:: 06/18/21 Discharge date: 06/21/21 HPI HPI: 30yo F presents the emergency department second shortness of breath. Patient test positive for Covid on Monday. Complains of fever. Decreased appetite. Reports general malaise. Patient has no known health conditions. She does not smoke. Takes no medications. 30yo F evaluated for shortness of breath with known Covid. Patient is 88% on room air on arrival. Placed on 2 L nasal cannula with appropriate improvement in O2 saturation. Routine Covid work-up initiated. D-dimer elevated at 0.65. Sent for CT PE study, negative for PE. Multifocal pneumonia on CT scan therefore started on Rocephin and azithromycin. Fever treated with Tylenol and Motrin on arrival. Case discussed with Dr. Aguirre who agrees to admit the patient at this time for further treatment. CTA chest as follows : PROCEDURE: CT ANGIO CHEST PE PROTOCOL CLINCIAL INDICATION: COVID, SOB The shortness of air and fever COMPARISON: CR XR CHEST PORTABLE from 06/18/2021 TECHNIQUE: IV Contrast: 70ML Isovue 370 Axial images obtained with sagittal and coronal reformats. All CT scans at the facility use one or more dose reduction, viz: automated exposure control, ma/kV adjustment per patient size (including targeted exams where dose is matched to indication, i.e. head), or iterative reconstruction technique. FINDINGS: HEART AND MEDIASTINAL STRUCTURES: No evidence of aortic aneurysm or dissection. No evidence pulmonary embolus. There are mildly prominent mediastinal lymph nodes in the right paratracheal region anteriorly measuring up to 1.8 cm. LUNGS AND PLEURAL SPACES: Multi segmental areas of ground-glass attenuation and areas of consolidation are present in both upper and lower lobes consistent with Covid19 pneumonia. There is sparing of the apices on both sides. There is trace right effusion. BONY STRUCTURES: No acute bony abnormalities apparent. UPPER ABDOMEN: Fatty liver ADDITIONAL FINDINGS: No other significant abnormalities. IMPRESSION: 1. Multifocal bilateral areas of ground-glass attenuation and consolidation consistent with Covid19 pneumonia with trace right effusion 2. No evidence of pulmonary embolus. Hospital Course Hospital Course: Laboratory Tests 06/18/21 06/18/21 06/18/21 08:20 08:20 08:20 WBC RBC Hgb Hct MCV MCH MCHC RDW Plt Count MPV Neut % (Auto) Lymph % (Auto) [place] % (Auto) Eos % (Auto) Baso % (Auto) Neut # (Auto) Lymph # (Auto) [place] # (Auto) Eos # (Auto) Baso # (Auto) D-Dimer 0.65 H Sodium 138 Potassium 3.5 Chloride 103 Carbon Dioxide 25 Anion Gap 13.5 BUN 17 Creatinine 0.80 Estimated Creat Clear 163 Estimated GFR 85 Est GFR ( Amer) 103 D Glucose 109 H Calcium 8.1 L Ferritin Total Bilirubin 0.5 AST 36 D ALT 36 D Alkaline Phosphatase 70 Lactate Dehydrogenase 329 C-Reactive Protein Total Protein 6.9 Albumin 3.7 Globulin 3.2 Albumin/Globulin Ratio 1.2 Serum HCG, Qual Negative 06/18/21 06/19/21 06/19/21 08:50 06:15 06:15 WBC 2.7 L 2.3 L RBC 4.64 4.46 Hgb 11.7 L 11.2 L Hct 34.3 L 33.5 L MCV 74.0 L 75.1 L MCH 25.2 L 25.1 L MCHC 34.0 33.4 RDW 14.6 14.8 Plt Count 191 121 L D MPV 8.2 8.6 Neut % (Auto) 83.0 H 56.9 Lymph % (Auto) 14.8 38.8 [place] % (Auto) 1.2 L 3.7 Eos % (Auto) 0.5 0.4 Baso % (Auto) 0.4 0.2 Neut # (Auto) 2.2 1.3 L Lymph # (Auto) 0.4 L 0.9 [place] # (Auto) 0.0 L 0.1 Eos # (Auto) 0.0 0.0 Baso # (Auto) 0.0 0.0 D-Dimer Sodium 139 Potassium 4.0 Chloride 107 Carbon Dioxide 24 Anion Gap 12.0 BUN 12 D Creatinine 0.60 D Estimated Creat Clear 104 Estimated GFR 118 Est GFR ( Amer) 143 D Glucose 79 D Calcium 7.6 L
--- NOTE | 2021-06-21 15:53 | HMH.PULMCON ---
*Admission Date: 06/18/21 *Reason for consult:: Acute hypoxic respiratory failure, COVID-19 pneumonia *History of present illness: Ms. Beaulieu is a 30-year-old male unvaccinated no upper respiratory complaints diagnosed with COVID-19 pneumonia 10 days ago has been complaining of progressively worsening shortness of breath along with nonproductive cough was eventually admitted to the hospital and pulmonary was called for further management. Patient denies any prior respiratory complaints. Denies any personal history of allergies or asthma. [facility] History Medical History: Denies:: Asthma, Congestive Heart Failure, Chronic Obstructive Pulmonary Disease (COPD), Diabetes Mellitus Type 1, Diabetes Mellitus Type 2, Hypertension *Have you ever received a pneumonia vaccine?: No *Have you received a flu vaccine this season?: No - *Social History Last grade of school completed: High school graduate Smoking Status: Never smoker Alcohol Intake: never *Occupational Status:: employed Household Members: spouse, children *Travel in the last 8 weeks: None Family Hx:: No significant family history ROS - Cons Reports body ache(s), Reports chills - Eyes Denies blind spots, Denies blurry vision - ENT Denies difficulty swallowing - Card Reports shortness of breath, Reports shortness of breath with activity, Denies leg swelling - Resp Respiratory: Reports chest congestion, Reports non-productive cough, Reports dyspnea, Denies pain with cough, Denies cough with sputum production, Denies pain with breathing, Denies snoring, Denies wheezing - GI Gastrointestingal: Denies: abdominal pain - [place] Musculoskeletal: Denies decreased muscle mass - Psych Denies abnormal sleep pattern Meds Home Medications Medication Instructions Recorded Confirmed Type ondansetron HCL [Ondansetron 8mg 8 mg PO TIDP PRN 06/19/21 06/19/21 History tab*] levoFLOXacin [Levaquin 500mg 500 mg PO DAILY 5 Days #5 tab 06/21/21 Rx tab] Allergies Allergy/AdvReac Type Severity Reaction Status Date / Time No Known Allergies Allergy Verified 06/18/21 09:28 Exam - Constitutional Constitutional:: Present: no acute distress, comfortable - HENMT Exam HENMT: Present: normocephalic, atraumatic - Eye Exam Eyes:: Present: normal appearance both eyes and related structures - Neck Exam Neck:: Present: normal visual inspection - Respiratory Exam Respiratory:: Present: able to speak in complete sentences, no respiratory distress, crackles. Absent: wheezing - Cardiovascular Exam Cardiac:: Present: S1, S2 - GI Exam GI:: Present: soft, no hepatosplenomegaly - Skin Exam Skin: Present: warm, no rash, dry - Neurological Exam Neurological: Present: alert, awake, normal cognition - Extremities Exam Extremities: Present: no cyanosis, no clubbing, no edema Internal Medicine - CN: Reslt - Labs CBC & Chem 7: 06/20/21 05:33 06/21/21 06:00 Labs: BMP 06/21/21 06:00 Sodium 141 Potassium 3.8 D Chloride 109 H Carbon Dioxide 24 BUN 12 D Creatinine 0.50 L D Glucose 103 H Calcium 8.2 L Liver Function 06/21/21 Range/Units 06:00 Total Bilirubin 0.4 (0.2-1.3) mg/dl AST 49 H D (14-36) U/L ALT 30 D (12-78) U/L Alkaline Phosphatase 55 (38-126) U/L Albumin 3.0 L (3.5-5.0) g/dl Assessment and Plan (1) Acute respiratory failure with hypoxia Status: Acute Category: Medical Code(s): J96.01 - Acute respiratory failure with hypoxia (2) COVID Status: Acute Category: Medical Code(s): U07.1 - COVID-19 (3) Pneumonia Status: Acute Qualifiers: Pneumonia type: due to unspecified organism Laterality: bilateral Lung location: unspecified part of lung Qualified Code(s): J18.9 - Pneumonia, unspecified organism Category: Medical Code(s): J18.9 - Pneumonia, unspecified organism (4) COVID-19 Status: Acute Category: Medical Code(s): U07.1 - COVID-19 - Assessment
== END 2021-06-21 16:15 | disposition home or self-care (01) | DRG 177 ==
LOC: ER 10:26 → ICU 13:54 → 2ND 14:36 → ICU 14:48
PROVIDERS: Internal Medicine Pulmonary Disease; Admitting Provider Family Medicine; Emergency Provider Family Medicine; PCP Physician Assistant; Visit Provider Family Medicine
DX: U07.1 COVID-19 (principal); J12.82 Pneumonia due to coronavirus disease 2019; J96.01 Acute respiratory failure with hypoxia
CPT/HCPCS: 36415; 71045; 71275; 80048; 80053; 82728; 83615; 84703; 85025; 85378; 86140; 93005; 94760; 96365; 96367; 96375; 99284; J0456; J2405; Q9967

== ENCOUNTER 2024-03-14 13:04 | Outpatient (CLI) | payer BC, SELFPAY | END 2024-03-14 23:59 | disposition home or self-care (01) | LOC: LAB.DROPOF 03-15 13:04 | PROVIDERS: PCP Student in an Organized Health Care Education/Training Program; Visit Provider Student in an Organized Health Care Education/Training Program | DX: N30.00 Acute cystitis without hematuria (principal); B96.29 Other Escherichia coli [E. coli] as the cause of diseases classified elsewhere | CPT/HCPCS: 87086 ==